=== PATIENT | female | born 1995 | race African-American/Black ===

== ENCOUNTER 2017-06-24 12:26 | Emergency (ER) | payer OTHER ==
[2017-06-24] VITALS (9 sets, daily range): BP systolic 104; BP diastolic 63; PULSE 79–94; RESP 20; TEMP 98.3; O2SAT 100
[~2017-06-24 12:26] MED LIST: Z.0.NO CURRENT MEDS
--- NOTE | 2017-06-24 14:11 | PD ---
HPI Chief Complaint SOB Lower abdominal pain Vaginal discharge Date Seen: Jun 24, 2017 Time Seen: 14:06 (Elsy Montalvo MD R1) Travel History International Travel<30 Days: No Contact w/Intl Traveler<30Days: No Known Affected Area: No (Elsy Montalvo MD R1) History of Present Illness HPI Patient is a 21-year-old at 19 weeks who presents to OB triage complaining of shortness of breath, lower abdominal pain, yellow discharge. Patient has been experiencing shortness of breath at the end of the day for the past few weeks. Last night she went to bed feeling short of breath and woke up still feeling short of breath. Shortness of breath has since resolved. She denies dizziness. She denies chest pain/tightness. Patient's lower abdominal pain is a sharp, 7 out of 10 pain that comes and goes. She has been experiencing the pain across her lower midsection for the past 1-2 weeks. Pain is aggravated by movement. Patient has been experiencing yellow discharge for the past 1-2 weeks. She denies itching but states that vaginal area feels dry. She denies increased frequency in urination or burning with urination. She denies back pain. Para: 0 : 1 (Elsy Montalvo MD R1) History Past Medical History Narrative Medical Bronchitis x1 as child (Elsy Montalvo MD R1) Obstetric History Obstetric History GI current ; care in [place], no complications; gender: girl (Elsy Montalvo MD R1) Past Surgical History Narrative Surgical [place] teeth x 2 years ago (Elsy Montalvo MD R1) Family History Family History: Negative (Elsy Montalvo MD R1) Social History Alcohol Use: No Tobacco Use: No Substance Abuse: No (Elsy Montalvo MD R1) Allergies-Medications (Allergen,Severity, Reaction): Coded Allergies: No Known Allergies (Verified , 06/24/17) Home Meds Active Scripts Nitrofurantoin Monohydrate Macrocrystals (Macrobid)100 Mg [place]207 Mg PO BID PRN ( Infection) 7 Days Ref 0 Prov:Colleen Rodriges MD 06/24/17 Reported Medications Miscellaneous (No Current Meds) Misc 11/26/07 Narrative Medication [place] Multivitamin (Elsy Montalvo MD R1) Review of Systems General / Constitutional: No: Fever, Weight Gain, Chills, Other Eyes: No: Diploplia, Blurred Vision, Visual changes, Pain, Photophobia HENT: No: Headaches, Vertigo, Lightheadedness Cardiovascular: No: Chest Pain or Discomfort, Palpitations, Syncope, Edema Respiratory: Short of Breath, No: Wheezing Gastrointestinal: Abdominal Pain, Constipation (Last bowel movement today; hard stool ), No: Nausea, Vomiting, Diarrhea Genitourinary: No: Urgency, Frequency, Dysuria, Hematuria, Vaginal Bleeding Musculoskeletal: No: Limited ROM, Weakness, Cramping, Edema, Pain Skin: No Rash, No Itching, No Dryness, No Lumps, No Change in Pigmentation, No Change in Nails, No Alopecia, No Lesions Neurologic: No: Weakness, Dizziness, Syncope, Focal Abnormalities, Coordination Problem, Headache, Slurred Speech, Seizures Psychiatric: No: Depression, Suicidal Ideations, Homicidal Ideation Endocrine: No: Heat Intolerance, Cold Intolerance, Polydipsia, Polyuria, Other (Elsy Montalvo MD R1) Physical Exam Vital Signs Date Time Temp Pulse Resp B/P Pulse Ox O2 Delivery O2 Flow Rate FiO2 06/24/17 12:27 98.3 94 20 104/63 100 Narrative GENERAL: Well-nourished, well-developed patient. SKIN: Warm and dry. HEAD: Normocephalic and atraumatic. EYES: No scleral icterus. No injection or drainage. ENT: No nasal drainage noted. Mucous membranes pink. Airway patent. NECK: Supple, trachea midline. No JVD. CARDIOVASCULAR: Regular rate and rhythm without murmurs, gallops, or rubs. RESPIRATORY: Breath sounds equal bilaterally. No accessory muscle use. ABDOMEN/GI: Abdomen soft, non-tender, bowel sounds present, no rebound, no guarding Gravid to 19 weeks size FHT's: Baseline: 142 EXTREMITIES: No cyanosis or edema. BACK: Nontender without obvious deformity. No CVA tenderness. NEUROLOGICAL: Awake and alert. Motor and sensory grossly within normal limits. Five out of 5 muscle strength in all muscle groups. Normal speech. (Elsy Montalvo MD R1) Data Data Vital Signs Reviewed: Yes (Elsy Montalvo MD R1) MDM Plan Patient is a 21-year-old at 19 weeks who presents to OB triage complaining of shortness of breath, lower abdominal pain, yellow discharge. Round ligament pain * Reassure patient that symptoms are likely normal * Provide pain management options UTI vs vaginal infection * UA - positive for leukocyte esterase and rare bacteria. * Wet prep - negative. * Discharge with Macrobid 100 mg PO BID x 7 days. (Elsy Montalvo MD R1) Medical Record Reviewed: No Attending Attestation Pt seen and examined with the resident. Agree with above. D/c home. Treat UTI. f/u for routine care. (Colleen Rodriges MD) Diagnosis Diagnosis: Primary Impression: Round ligament pain Additional Impressions: 19 weeks gestation of Vaginal discharge during Qualified Code: O26.891 - Vaginal discharge during in first trimester Disposition: 01 DISCHARGE HOME Condition: Good Scripts Nitrofurantoin Monohydrate Macrocrystals (Macrobid)100 Mg [id number] Mg PO BID PRN ( Infection) 7 Days Ref 0 Prov:Colleen Rodriges MD 06/24/17 Elsy Montalvo MD R1 Jun 24, 2017 14:11 Colleen Rodriges MD Jun 24, 2017 15:39
[2017-06-24 14:42] LABS: BACTERIA, URINE RARE /hpf; BLOOD, URINE NEG (NEG); COMMENT (UR) CULT NOT INDICATED; CULTURE IF INDICATED CULT NOT INDICATED; GLUCOSE,URINE NEG (NEG); KETONE, URINE NEG (NEG); MUCUS URINE FEW /lpf (OCC); NITRITE,URINE NEG (NEG); PH, URINE 7.5 (5.0-8.5); SQUAMOUS EPITHELIAL CELL URINE 1 /hpf (0-5); URINE COLOR YELLOW (YELLW/STRAW)
[2017-06-24] MEDS ORDERED: MACR100C2 PO (15:39)
== END 2017-06-24 16:30 | disposition home or self-care (01) ==
LOC: HOBED 12:26
DX: O23.42 Unspecified infection of urinary tract in pregnancy, second trimester (principal); O26.892 Other specified pregnancy related conditions, second trimester; Z3A.19 19 weeks gestation of pregnancy
CPT/HCPCS: 81001; 87210; 99283